=== PATIENT | male | born 1945 | race Caucasian/White ===

== ENCOUNTER → 2019-05-16 | Outpatient (CLI) | payer OTHER ==
[~2019-05-16] MED LIST: ASPIR 8181 MG PO; ASPIRIN325 PO; AVAPRO 150 MG150 M1 PO; CLOPIDOGREL75 MG PO; COREG CR40 MG PO; CRESTOR20 MG PO; FLONASE 0.05%50 MCG NASAL; PROTONIX40 M2 PO
== END ==
LOC: SJCVC 09:26
DX: I73.9 Peripheral vascular disease, unspecified (principal); I25.10 Atherosclerotic heart disease of native coronary artery without angina pectoris; I10 Essential (primary) hypertension; E78.5 Hyperlipidemia, unspecified

== ENCOUNTER → 2019-05-24 | Outpatient (CLI) | payer OTHER ==
[~2019-05-24] VITALS: Ht 175.3 cm; Wt 86.2 kg
[~2019-05-24] MED LIST changes: -PROTONIX40 M2 PO
[2019-05-24 08:54] VITALS: BP 147/63
--- NOTE | 2019-05-24 16:03 | CATHLAB ---
[facility] [place] [address] INVASIVE PROCEDURE REPORT Name: MELISSA DEE Room #: REG DARY Shawn.#: [id number] Admission: 05/24/19 Attend Phys: Zain Burnette MD Discharge: Date of : 43 Report #: [id number] THIS REPORT FOR: cc: RODO LAMBERT Physician not on staff Miguel Chapman MD [facility] THIS REPORT FOR: //name// APPROVED REPORT Study performed: 05/24/2019 13:18:42 Patient Details Patient Status: Out-Patient Room #: The patient is a 73 year-old male Event Personnel Miguel Chapman MD, Business Analytics Intern,, Cherry Sorensenub, Vicente Vargas RN, Neelam Chan RTR Monitor, Dasia Pelayo RTR, ANDRY Scrub Procedures Performed Left Heart Cath w/or w/o Coronaries [id number] [facility] [id number] Initial Mod Sed Same Phys/QHP 5y [id number] Hemostasis w/ Mynx Indication Chest pain Procedure Narrative The was infiltrated with 1% Lidocaine subcutaneous anesthesia. A SHEATH BRITE-TIP 6F X 11CM ([id number]) sheath was inserted into the RFA^. Coronary angiography was performed using coronary diagnostic catheters. The right coronary system was accessed and visualized with a JR4 catheter. The left coronary system was accessed and visualized with a JL4 catheter. The left ventricle was accessed and visualized with a Pigtail catheter. Left ventriculogram was performed in 30 degree projection. Closure device was deployed with a 6 Fr MYNXGRIP 6/7F #[id number]. The patient tolerated the procedure well and there were no complications associated with the procedure. There was no hematoma. sedation totals, fluoro time/dose, and contrast totals are all from the combination case with Dr. Burnette as well. Intraoperative Conscious Sedation [address] [address] INVASIVE PROCEDURE REPORT Name: MELISSA DEE Room #: REG [facility]#: [id number] Admission: 05/24/19 Attend Phys: Zain Burnette, Discharge: Date of : 43 Report #: [id number] Sedation start time: 1316 Case end Time: 1346 Fentanyl 150 mcg Versed 3 mg Fluoro Time: 13.06 minutes Dose: DAP 16116.60 cGycm2 1318 mGy Contrast Type and Amount: Visipaque 222 ml Coronary Angiography The patient's coronary anatomy is right dominant. Diagnostic Cath Left Main Short, normal left main LAD Mild LAD plaquing Diagonal 1 Several small diagonal branches, angiographically normal Circumflex The circumflex was large and comprised of a large proximally arising and bifurcating marginal branch. Mild plaquing OM1 Large bifurcating first marginal branch, minimal plaquing OM2 Distally arising, small second marginal branch, angiographically normal Right Coronary The right coronary had been previously stented and was occluded in its midportion. Faint gcwt-re-itfgu collateralization Left Ventriculography The left ventricle is normal in size with normal contractility. The left ventricular ejection fraction is estimated to be 60-65%. Left ventricular wall motion abnormalities are present. There is no mitral insufficiency. Very mild inferior wall hypokinesis Hemodynamics The aortic pressure is 126/52 mmHg with a mean of 77 mmHg. The left ventricular pressure is 128/5 mmHg with a mean of mmHg. The left ventricular end diastolic pressure is 22 mmHg. PCI Technique Lesion Percutaneous coronary intervention was performed on the Popliteal. PCI Technique Lesion 2 Percutaneous Coronary Intervention was performed on the Superficial Femoral. [facility] [address] [place] [address] INVASIVE PROCEDURE REPORT Name: LUIZMELISSA Judith Room #: REG [facility]#: [id number] Admission: 05/24/19 Attend Phys: Zain Burnette, Discharge: Date of : 43 Report #: [id number] Conclusion 1. Normal global left ventricular systolic function with minimal inferior wall hypokinesis 2. Normal left main 3. LAD and circumflex with mild plaquing 4. Chronically occluded right coronary with faint xpnu-jz-utsdp collateralization. Recommendations Aggressive Medical Therapy <ELECTRONICALLY SIGNED> By: Miguel Chapman MD, [facility] 05/24/19 1602 160 1602 Miguel Chapman MD, FACC /INF
== END | disposition home or self-care (01) ==
LOC: CATH 08:18 → SPEC 10:29 → CATH 12:50
DX: I70.212 Atherosclerosis of native arteries of extremities with intermittent claudication, left leg (principal); R07.9 Chest pain, unspecified; I25.10 Atherosclerotic heart disease of native coronary artery without angina pectoris; I25.82 Chronic total occlusion of coronary artery; I70.1 Atherosclerosis of renal artery; I10 Essential (primary) hypertension; E78.5 Hyperlipidemia, unspecified; I25.2 Old myocardial infarction; Z87.891 Personal history of nicotine dependence; Z82.49 Family history of ischemic heart disease and other diseases of the circulatory system; Z98.890 Other specified postprocedural states; Z79.899 Other long term (current) drug therapy

== ENCOUNTER 2019-05-31 13:20 | Inpatient (IN) | payer OTHER ==
[~2019-05-31] VITALS: Ht 175.3 cm; Wt 86.2 kg
[2019-05-31 15:59] VITALS: BP 137/55
[2019-05-31 19:42] VITALS: BP 117/50
[2019-05-31 20:59] LABS: HEMATOCRIT 32.9 % (42.0-52.0); HEMOGLOBIN 10.9 gm/dL (14.0-18.0); MCH 31.1 pg (26.0-34.0); MCHC 33.2 g/dL (28.0-37.0); MCV 93.7 fL (80.0-100.0); RBC 3.51 mil/uL (4.50-6.00); RDW 14.4 % (10.5-14.5); WBC 6.3 thou/uL (4.0-11.0)
[2019-05-31 21:29] LABS: ALBUMIN 3.5 g/dL (3.4-5.0); CALCIUM 9.2 mg/dL (8.5-10.1); CREATININE 1.2 mg/dL (0.7-1.3); TOTAL BILIRUBIN 0.4 mg/dL (<0.1-1.0); TOTAL PROTEIN 6.7 g/dL (6.4-8.2)
[2019-05-31 22:01] LABS: POTASSIUM 4.8 mmol/L (3.5-5.1)
[2019-06-01 00:13] VITALS: BP 107/45
[2019-06-01 03:50] VITALS: BP 121/58
[2019-06-01 07:12] VITALS: BP 135/60
--- NOTE | 2019-06-01 07:39 | NUR ---
ASSUMED CARE AT 1900, ASSESSMENT COMPLETED, IV FLUIDS STARTED. PT DENIED PAIN, NAUSEA, OR SOB; DENIED DIZZINESS OR SIGNS OF BLEEDING. NPO AT MIDNIGHT FOR POSSIBLE ENDOSCOPY WITH GI. NO OTHER CONCERNS, SHIFT REPORT GIVEN AT 0700.
[2019-06-01 08:41] LABS: HEMATOCRIT 30.7 % (42.0-52.0); HEMOGLOBIN 10.4 gm/dL (14.0-18.0)
[2019-06-01] MEDS ORDERED: PROTONIX40 M2 PO (14:54)
[2019-06-01 15:33] VITALS: BP 135/60
[2019-06-01 16:31] VITALS: BP 135/60
--- NOTE | 2019-06-01 16:33 | NUR ---
Assumed care approx. 0700 this AM. Discharge orders obtained post EGD procedure. No complaints per patient after procedure. IV and tele dc'd. Protonix script given to patient with education given. Drug info sheet administered along with discharge packet. Pt is aware of follow up appointments with physician. taking patient home. RN walked pt out to entrance. All belongings noted to be with patient.
--- NOTE | 2019-06-04 08:51 | P ---
[facility] [place] [address] PROCEDURE REPORT Name: MELISSA DEE Room #: 358-P [facility] [place] ..#: [id number] Admission: 05/31/19 Attend Phys: Lyn Harrell MD Discharge: 06/01/19 Date of : 43 Report #: [id number] THIS REPORT FOR: cc: RODO LAMBERT Physician not on staff Claire Mckeon DO ~ CC: Zain Harrell MD Physician staff RODO Lambert MD DATE OF SERVICE: 06/01/2019 DIAGNOSTIC ESOPHAGOGASTRODUODENOSCOPY He is a patient of Dr. Rodo Lambert, Dr. Lyn Harrell and Dr. Zain Burnette. INDICATION FOR PROCEDURE: This patient began experiencing melena about 24 hours after starting Plavix. He had been on aspirin prior to having a stent placed the day before and was taking 325 mg per day. He had some minor dyspepsia prior to that and an EGD is being performed to try to figure out where the source of the melena is arising from. Informed consent for this procedure was obtained prior to the administration of any medication. The risks of the procedure, which include but are not limited to the following: Bleeding, perforation, infection, complications of sedation and the possibility I could miss something were explained to the patient and he has indicated his consent to proceed with EGD by signing. Anesthesia kindly provided deep sedation for this procedure. With the patient in the left lateral decubitus position, the Olympus upper videoscope was introduced through the upper esophageal sphincter and advanced under direct visualization to the third portion of the duodenum. Findings are noted on withdrawal of the scope. The visualized portion of the second and third portions of the duodenum appears normal. In the duodenal bulb, there are some erosions and he has some mild duodenitis. Pylorus, normal mucosa. Antrum, in the antrum of the stomach, there is some mild erosive gastritis. Body, normal mucosa. Cardia and fundus, in the proximal stomach near the cardia, there is a small 2-4 mm ulceration with one tiny flat, black and a visible nonbleeding blood vessel. It is most likely the source of his melena while on Plavix and aspirin. It is not bleeding at this time. No biopsies were taken as the patient has only been off Plavix for 48 hours. The cardia and the fundus [address] [address] PROCEDURE REPORT Name: MELISSA Room #: 358-P [facility] [place] ..#: [id number] Admission: 05/31/19 Attend Phys: Lyn Harrell MD Discharge: 06/01/19 Date of : 43 Report #: [id number] otherwise appeared normal. The scope was withdrawn into the esophagus. The Z-line is appropriately located at the top of the gastric folds and appears normal. The esophageal mucosa appears normal throughout its entirety. The scope was withdrawn. The patient went to the recovery area in stable condition. He tolerated the procedure well. IMPRESSION: 1. Proximal gastric ulcer with flat black visible nonbleeding vessel, likely the source of the melena. 2. Antral gastritis with a few erosions. 3. Mild duodenitis of the bulb. 4. No biopsies were taken as the patient has been off Plavix for only 48 hours. RECOMMENDATIONS: My recommendations were to continue his Protonix 40 mg p.o. q. 12 hours for 30 days and then daily for 60 more days. He should have a repeat EGD in about 3 months to assess the healing of this ulceration to be sure it has healed and if not, he will need biopsies of it. We will check a stool for H. pylori antigen in the interim. We will start him on a soft diet. I think if antiplatelet therapy is desired, it would be safer for him to have Plavix if it is possible for him to use Plavix alone without the aspirin. I will leave this to Cardiology to decide. I think it would be safer for him to go home today or tomorrow. The flat black vessel in the bottom of the proximal gastric ulcer has about a 10% chance of rebleeding within the next 24 hours. Thank you very much once again for allowing me to participate in his care, Dr. Lambert, Dr. Harrell and Dr. Burnette. <ELECTRONICALLY SIGNED> By: Claire Mckeon DO 06/04/19 0851 1221 1351 Claire Mckeon DO /nt
== END 2019-06-01 16:39 | disposition home or self-care (01) | DRG 378 ==
LOC: 3W 13:20
PROVIDERS: Internal Medicine Gastroenterology; ADMIT Internal Medicine
PROC: 0DJ08ZZ Inspection of Upper Intestinal Tract, Via Natural or Artificial Opening Endoscopic (ICD-10-PCS; principal; 2019-05-31)
DX: K29.01 Acute gastritis with bleeding (principal); D62 Acute posthemorrhagic anemia; K27.4 Chronic or unspecified peptic ulcer, site unspecified, with hemorrhage; K55.21 Angiodysplasia of colon with hemorrhage; K29.81 Duodenitis with bleeding; K92.1 Melena; E78.00 Pure hypercholesterolemia, unspecified; I10 Essential (primary) hypertension; I25.10 Atherosclerotic heart disease of native coronary artery without angina pectoris; I49.3 Ventricular premature depolarization; I65.29 Occlusion and stenosis of unspecified carotid artery; E78.5 Hyperlipidemia, unspecified; I73.9 Peripheral vascular disease, unspecified; K21.9 Gastro-esophageal reflux disease without esophagitis; N40.0 Benign prostatic hyperplasia without lower urinary tract symptoms; G47.00 Insomnia, unspecified; Z95.820 Peripheral vascular angioplasty status with implants and grafts; Z87.891 Personal history of nicotine dependence; Z86.010 Personal history of colon polyps; Z79.82 Long term (current) use of aspirin; Z79.899 Other long term (current) drug therapy; I25.2 Old myocardial infarction; Z95.5 Presence of coronary angioplasty implant and graft
CPT/HCPCS: 10779; 10879; 62110; 62900; 70005

== ENCOUNTER → 2019-09-14 | Outpatient (CLI) | payer OTHER ==
[~2019-09-14] MED LIST changes: +PROTONIX40 M2 PO
== END ==
LOC: SJCVCIMAG 08:46
DX: R00.1 Bradycardia, unspecified (principal); I65.23 Occlusion and stenosis of bilateral carotid arteries; I25.10 Atherosclerotic heart disease of native coronary artery without angina pectoris; E78.5 Hyperlipidemia, unspecified; I10 Essential (primary) hypertension

== ENCOUNTER → 2020-03-19 | Outpatient (CLI) | payer OTHER | LOC: SJCVCIMAG 10:11 | PROVIDERS: ATTEND Nuclear Medicine Nuclear Cardiology | DX: I70.202 Unspecified atherosclerosis of native arteries of extremities, left leg (principal); I77.9 Disorder of arteries and arterioles, unspecified; I10 Essential (primary) hypertension; I25.10 Atherosclerotic heart disease of native coronary artery without angina pectoris; E78.00 Pure hypercholesterolemia, unspecified; E78.5 Hyperlipidemia, unspecified; Z72.89 Other problems related to lifestyle; Z95.828 Presence of other vascular implants and grafts; Z79.899 Other long term (current) drug therapy; Z87.891 Personal history of nicotine dependence ==

== ENCOUNTER → 2020-10-14 | Outpatient (CLI) | payer OTHER | LOC: SJCVCIMAG 08:39 | PROVIDERS: ATTEND Internal Medicine | DX: R94.31 Abnormal electrocardiogram [ECG] [EKG] (principal); I65.23 Occlusion and stenosis of bilateral carotid arteries; I70.202 Unspecified atherosclerosis of native arteries of extremities, left leg; R00.1 Bradycardia, unspecified; I25.10 Atherosclerotic heart disease of native coronary artery without angina pectoris; I10 Essential (primary) hypertension; E78.5 Hyperlipidemia, unspecified; I73.9 Peripheral vascular disease, unspecified; Z72.89 Other problems related to lifestyle; Z87.891 Personal history of nicotine dependence; Z79.899 Other long term (current) drug therapy; Z95.828 Presence of other vascular implants and grafts ==